=== PATIENT | female | born 1955 | race Caucasian/White ===

== ENCOUNTER → 2017-02-28 | Outpatient (CLI) | payer OTHER | LOC: FIMAGING 13:06 | DX: Z12.31 Encounter for screening mammogram for malignant neoplasm of breast (principal) | CPT/HCPCS: G0202 ==

== ENCOUNTER → 2018-03-07 | Outpatient (CLI) | payer OTHER | LOC: FIMAGING 09:09 | PROVIDERS: ATTEND Physician Assistant | DX: Z12.31 Encounter for screening mammogram for malignant neoplasm of breast (principal); Z80.3 Family history of malignant neoplasm of breast ==

== ENCOUNTER 2019-02-20 05:34 | Emergency (ER) | payer OTHER ==
--- NOTE | 2019-02-20 05:43 | EDPHY ---
H & P Time Seen by Provider: 02/20/19 05:43 HPI/ROS: HPI CHIEF COMPLAINT: Coccyx pain after slip and fall. HISTORY OF PRESENT ILLNESS: Patient is a 63-year-old female, she arrives to the emergency room she states that she slipped and fell while hiking on mud yesterday, the patient states that she slipped and fell landing on her coccyx. Since then she has had ongoing pain at her coccyx. Denies any low back pain. The pain does not radiate down either leg. It stays locally coccyx pain. Denies any chest pain or shortness of breath. States she could not sleep last night and is concerned may be fractured. Past Medical History: Denies significant medical history Past Surgical History: Denies significant surgical history Social History: Lives locally, denies drugs alcohol tobacco. Family History: Noncontributory ROS REVIEW OF SYSTEMS: 10 Systems were reviewed and negative with the exception of the elements mentioned in the history of present illness. Exam Constitutional triage nursing summary reviewed, vital signs reviewed, awake/ alert. Eyes normal conjunctivae and sclera, EOMI, PERRLA. HENT normal inspection, atraumatic, moist mucus membranes, no epistaxis, neck supple/ no meningismus, no raccoon eyes. Respiratory clear to auscultation bilaterally, normal breath sounds, no respiratory distress, no wheezing. Cardiovascular rate normal, regular rhythm, no murmur, no edema, distal pulses normal. Gastrointestinal soft, non-tender, no rebound, no guarding, normal bowel sounds, no distension, no pulsatile mass. Genitourinary no CVA tenderness. Musculoskeletal back and gluteal exam: Veronica RN at bedside as patent examiner during this exam: Bruising to the left gluteus, tender palpation at the coccyx. Otherwise atraumatic. No midline lumbar back pain. no midline vertebral tenderness, full range of motion, no calf swelling, no tenderness of extremities, no meningismus, good pulses, neurovascularly intact. Skin pink, warm, & dry, no rash, skin atraumatic. Neurologic awake, alert and oriented x 3, AAOx3, moves all 4 extremities equally, motor intact, sensory intact, CN II-XII intact, normal cerebellar, normal vision, normal speech. Psychiatric normal mood/affect. Heme/Lymph/Immune no lymphadenopathy. Differential Diagnosis: Includes but is not limited to in a particular order coccyx contusion, coccyx fracture, bony contusion, soft tissue injury Medical Decision Making: Plan for this patient declined pain medicine here in emergency room, plan for coccyx x-ray to evaluate for fracture. Re-evaluation: Coccyx x-ray reviewed by myself. I do believe I see a distal coccyx fracture. Updated patient on coccyx x-ray results. Do recommend she uses Tylenol Motrin for pain control, recommend doughnut. If she continues to have bad pain recommend following up with Orthopedics. We discussed return precautions. Return emergency room if worsening pain, not doing well Source: Patient, EMS Constitutional: Initial Vital Signs Temperature (C) 36.8 C 02/20/19 05:42 Heart Rate 81 02/20/19 05:42 Respiratory Rate 16 02/20/19 05:42 Blood Pressure 115/89 H 02/20/19 05:42 O2 Sat (%) 98 02/20/19 05:42 O2 Delivery Mode Room Air Allergies/Adverse Reactions: amoxicillin Allergy (Verified 02/20/19 05:43) Home Medications: Medication Instructions Recorded NK [No Known Home Meds] 02/20/19 Departure - Departure Disposition: Home, Routine, Self-Care Clinical Impression: Fractured coccyx Qualifiers: Encounter type: initial encounter Fracture type: closed Qualified Code(s): S32.2XXA - Fracture of coccyx, initial encounter for closed fracture Condition: Good Instructions: Coccyx Injury (ED) Additional Instructions: 1. Sit on a donut take pressure off of your coccyx 2. Ice. 3. Anti-inflammatory pain medicine 4. Return to the emergency room if worsening symptoms Referrals: Treva Russo PA [Primary Care Provider] - As per Instructions Edward Connell MD [Medical Doctor] - As per Instructions
[2019-02-20 07:30] VITALS: BP 144/83
== END 2019-02-20 07:32 | disposition home or self-care (01) ==
DX: S32.2XXA Fracture of coccyx, initial encounter for closed fracture (principal); W01.0XXA Fall on same level from slipping, tripping and stumbling without subsequent striking against object, initial encounter; Y93.01 Activity, walking, marching and hiking; Z88.0 Allergy status to penicillin

== ENCOUNTER → 2019-04-09 | Outpatient (CLI) | payer OTHER | LOC: FIMAGING 12:20 ==